=== PATIENT | male | born 1980 | race Two or more races ===

== ENCOUNTER 2022-09-12 07:43 | Emergency (ER) | payer SELFPAY ==
[~2022-09-12] VITALS: Ht 185.4 cm; Wt 107.0 kg
[2022-09-12 08:11] LABS: Basophils # (auto) 0.1 10 ^3/uL (0-0.2); Basophils % (auto) 1.3 % (0.0-2.0); Eosinophils # (auto) 0.1 10 ^3/uL (0-0.8); Eosinophils % (auto) 1.3 % (0.0-7.0); Hematocrit 45.9 % (41.0-53.0); Hemoglobin 16.2 g/dL (13.5-17.5); Lymphocytes # (auto) 1.7 10 ^3/uL (0.4-5.4); Lymphocytes % (auto) 35.6 % (10.0-50.0); Mean Corpuscular Hemoglobin 32.5 pg (28.0-32.0); Mean Corpuscular Hgb Conc. 35.3 g/dL (32.0-36.0); Mean Corpuscular Volume 92.2 fL (80.0-100.0); Monocytes # (auto) 0.4 10 ^3/uL (0-1.3); Monocytes % (auto) 8.2 % (0.0-12.0); Neutrophils # (auto) 2.6 10 ^3/uL (1.6-8.6); Neutrophils % (auto) 53.6 % (37.0-80.0); Nucleated Red Blood Cells % 0.1 %; Red Blood Cells 4.98 10^6/uL (4.5-5.90); Red Cell Distribution Width 12.7 % (11.8-14.3); White Blood Cell 4.8 10^3/uL (4.4-10.8)
[2022-09-12 08:19] LABS: INR 0.93 (0.9-1.15); Partial Thromboplastin Time 26.4 sec (24.6-33.4)
[2022-09-12 08:37] LABS: Albumin 4.3 g/dL (3.4-5.0); Calcium 8.9 mg/dL (8.5-10.1); Potassium 4.3 mmol/L (3.5-5.1)
[2022-09-12 08:42] LABS: BUN/Creatinine Ratio 14.6 (10.0-20.0); Bilirubin, Total 0.5 mg/dL (0.2-1.0); Total Protein 7.3 g/dL (6.4-8.2)
[2022-09-12] MEDS ORDERED: LIDOCAINE VISCOUS 2% 15ML UD PO ONE (10:15)
[2022-09-12] MEDS ORDERED: ONDANSETRON ODT 4 MG TAB PO ONE (10:15)
[2022-09-12] MEDS ORDERED: FAMOTIDINE 20 MG TAB PO ONE (10:15)
[2022-09-12] MEDS ORDERED: MAALOX PLUS or MAALOX 30 ML PO ONE (10:15)
[2022-09-12] MEDS ORDERED: OMEP-434 PO (11:49)
[2022-09-12 12:19] VITALS: BP 137/93
== END 2022-09-12 12:19 | disposition home or self-care (01) ==
LOC: ER 07:43
DX: R07.89 Other chest pain (principal); K21.9 Gastro-esophageal reflux disease without esophagitis; E78.5 Hyperlipidemia, unspecified; I10 Essential (primary) hypertension; F12.90 Cannabis use, unspecified, uncomplicated
CPT/HCPCS: 36415; 71045; 80053; 84484; 85025; 85610; 85730; 93005; Q0162